=== PATIENT | female | born 2000 | race Caucasian/White ===

== ENCOUNTER 2022-07-30 13:41 | Emergency (ER) | payer OTHER, SELFPAY ==
--- NOTE | ~2022-07-30 | CT_ITS ---
EXAMINATION: CT ANGIOGRAM OF THE HEAD CT ANGIOGRAM OF THE NECK CLINICAL INFORMATION: Loss of vision for 5 minutes. Symptoms resolved. COMPARISON: There are no prior studies available for comparison. TECHNIQUE: Test bolus series followed by intravenous administration 70 mL of Omnipaque 350. Helical imaging was performed in the axial plane from the mediastinum to the skull vertex. The degree of stenosis is based off NASCET criteria. The data was processed at the eeg technologist workstation for generation of MIP images. Three-dimensional volume rendered reformatted images were also generated at an offline 3-D workstation. This CT examination was performed using dose optimization techniques as appropriate, variously including the following: *Automated exposure control *Adjustment of mA and/or kV according to patient size (this includes techniques or standardized protocols for targeted exams where dose is matched to indication/reason for exam; i.e. extremities or head) *Use of iterative reconstruction technique DLP: 2274 mGy-cm. FINDINGS: CT Head: There is no evidence of acute intracranial hemorrhage or territorial infarction. No abnormal mass-effect or midline shift is seen. Lenz to white matter differentiation is well preserved. No extra-axial fluid collections are identified. There is no abnormal enhancement. The ventricles and sulci are normal in size. There is no abnormal attenuation within the brain parenchyma. The osseous structures and soft tissues are normal. The mastoid air cells are well-aerated. There is mucoperiosteal thickening in the right greater than left maxillary sinuses. The nasal septum is deviated to the left and there is a left-sided bony nasal septal spur. CTA Neck: There is a classic configuration of the arch of the aorta. The great vessels of the neck are widely patent. The subclavian arteries appear normal bilaterally. The common carotid arteries have normal caliber. The carotid bifurcations bilaterally appear normal. The internal carotid arteries in the neck bilaterally have uniform and normal caliber. The origins of both vertebral arteries are well seen and appear normal. Both vertebral arteries are widely patent and demonstrate good opacification throughout their cervical course. The left vertebral artery is slightly dominant. Nonvascular: The visualized lung huang are well-aerated. There is reversal of the normal cervical lordosis which may be positional. There are no acute fractures or subluxations. The thyroid gland is normal in size. There is no cervical lymphadenopathy. CTA Head: The intracranial internal carotid arteries and their bifurcations appear normal. There are 3 A2 segments of the anterior cerebral arteries, a normal variant. The middle and anterior cerebral arteries bilaterally demonstrate normal caliber with no evidence of focal stenosis, aneurysm or vascular malformation. There is normal arborization of the middle cerebral artery branches. The anterior communicating artery is normal. In the posterior circulation, the left vertebral artery is dominant. The vertebral arteries intradurally have uniform caliber. The basilar artery appears normal. The posterior cerebral arteries have normal caliber. The venous sinuses opacify normally. CT/CT angio head neck IMPRESSION: CT head and neck: 1. There are no acute bleeds or territorial infarcts. 2. There are no masses or areas of abnormal enhancement. 3. There is no cervical or lymphadenopathy. 4. There is mild paranasal sinus disease. CTA head and neck: 1. The aorta, great vessels the neck and the carotid and vertebral arteries appear normal without evidence of flow-limiting stenosis. 2. Intracranially there are no focal stenoses, aneurysms or vascular malformations. This critical result was discussed with RAFAEL Poe by telephone on 07/30/2022 at 9:40 PM and it was ascertained that the content and urgency of the report was understood at the time of direct communication.
--- NOTE | 2022-07-30 13:45 | PC.NURSE ---
called to triage x 2
[2022-07-30 13:50] VITALS: BP 129/76; PULSE 82; RESP 18; TEMP 36.8; O2SAT 97; BMI 24.0
--- NOTE | 2022-07-30 13:53 | ECG_ITS ---
Test Reason : intermittent vision loss Blood Pressure : / mmHG Vent. Rate : 080 BPM Atrial Rate : 080 BPM P-R Int : 110 ms QRS Dur : 076 ms QT Int : 382 ms P-R-T Axes : 051 016 043 degrees QTc Int : 440 ms Sinus rhythm with sinus arrhythmia with short GA Otherwise normal ECG No previous ECGs available Referred By: Generic ED Physician Electronically Signed By:KATARZYNA PUGH MD
[2022-07-30 14:16] LABS: MANUAL DIFF FLAG NO
[2022-07-30 14:21] LABS: Basophils Absolute Auto 0.1 X10*3/uL (0.0-0.2); Basophils Percent Auto 0.4 % (0-2); Eosinophils Absolute Auto 0.1 X10*3/uL (0.0-0.4); Eosinophils Percent Auto 0.9 % (0-4); Hematocrit 43.3 % (37.0-47.0); Imm Gran Abs Auto 0.04 X10*3/uL (0.00-0.03); Imm Gran Pct Auto 0.3 % (0.0-0.4); Lymphocytes Absolute Auto 2.2 X10*3/uL (1.2-4.9); Lymphocytes Percent Auto 18.6 % (20-40); Mean Corpuscular HGB Conc 32.3 g/dl (31.0-35.0); Mean Corpuscular Hemoglobin 27.5 pg (27.0-33.0); Mean Corpuscular Volume 84.9 fL (80.0-98.0); Mean Platelet Volume 9.7 fL (9.4-12.3); Monocytes Absolute Auto 0.6 X10*3/uL (0.1-1.2); Monocytes Percent Auto 5.1 % (2-11); Neutrophils Absolute Auto 8.7 x10*3/uL (2.0-8.3); Neutrophils Percent Auto 74.7 % (45-73); Platelet Count 325 X10*3/uL (160-400); Red Cell Distribution Width 13.2 % (11.0-16.0); White Blood Count 11.7 X10*3/uL (4.8-10.8)
[2022-07-30 14:37] LABS: Alanine Aminotransferase 18 U/L (0-31); Albumin Level 4.8 g/dL (3.5-5.0); Alkaline Phosphatase 76 U/L (39-117); Anion Gap 13 (12-20); Aspartate Amino Transferase 27 U/L (5-31); Bilirubin Direct 0.2 mg/dL (0.0-0.5); Bilirubin Total 0.6 mg/dL (0.0-1.0); Blood Urea Nitrogen 13 mg/dL (9-16); Calcium 10.1 mg/dL (8.4-10.2); Carbon Dioxide 28 mmol/L (22-29); Chloride 104 mmol/L (96-108); Estimated Glomerular Filt Rate > 60; Glucose Random 103 mg/dL (60-115); Lipase 16 U/L (8-78); Potassium 4.4 mmol/L (3.3-5.1); Sodium 141 mmol/L (135-145); Total Protein 7.7 g/dL (6.5-8.0)
[2022-07-30 16:37] LABS: Appearance Urine Clear; Color Urine Yellow; Glucose Urine UA Negative (Negative); Leukocyte Esterase Urine Moderate (2+) (Negative); Nitrite Urine Negative (Negative); PH 7.5 (5.0-9.0); Specific Gravity - Urine <= 1.005 (1.005-1.025); UMIC TRIGGER UACC YES; Urine Blood Negative (Negative); Urine Ketones Negative (Negative); Urine Protein Negative (Neg-Trace)
[2022-07-30 16:38] LABS: UPreg QC Valid YES; Urine Pregnancy NEGATIVE (NEGATIVE)
[2022-07-30 16:39] LABS: Bacteria Urine None Seen (None Seen); Hyaline Casts Urine 0-2 /LPF (0-2); RBC Urine 0-2 /HPF (0-2); UACC Culture Trigger YES
[2022-07-30 17:33] LABS: Magnesium 1.9 mg/dL (1.6-2.6)
--- NOTE | 2022-07-30 18:25 | ED.GENADULT ---
HPI - General Adult General Chief complaint: General Medical <RAFAEL Whitaker Last Filed: 07/30/22 20:10> Stated complaint: lost vision earlier today <RAFAEL Whitaker Last Filed: 07/30/22 20:10> Time Seen by Provider: 07/30/22 16:45 <RAFAEL Whitaker Last Filed: 07/30/22 20:10> Source: patient <RAFAEL Whitaker Last Filed: 07/30/22 20:10> Mode of arrival: ambulatory <RAFAEL Whitaker Last Filed: 07/30/22 20:10> History of Present Illness HPI narrative: 22-year-old female with no significant past medical history presenting to the ED complaining black dot noted in vision this morning around 07:30AM then prgressed to complete loss of vision x5 minutes in bilateral eyes. Symptoms spontaneously resolved, asymptomatic at present. Reports mild associated headache. Denies nausea, vomiting, numbness, tingling, weakness, head trauma/fall. Denies taking anticoagulation. No oral OCPs <RAFAEL Whitaker Last Filed: 07/30/22 20:10> Onset (ago): hour(s) <RAFAEL Whitaker Last Filed: 07/30/22 20:10> Related Data Allergies/adverse reactions: Allergies Allergy/AdvReac Type Severity Reaction Status Date / Time No Known Allergies Allergy Verified 07/30/22 13:49 <RAFAEL Whitaker Last Filed: 07/30/22 20:10> Review of Systems Review of Systems: Constitutional: No Fever, No Chills, No Fatigue, No Malaise ENT/Mouth: No Hearing loss, No Ear Pain, No Nasal Congestion, No sore throat, No Rhinorrhea, No Swallowing Difficulty Eyes: No Eye Pain, No Swelling, No Redness, No Discharge, + Vision Changes Cardiovascular: No Chest Pain, No SOB, No Dyspnea on Exertion, No Orthopnea, No Edema, No Palpitations Respiratory: No Cough, No Sputum, No Dyspnea Gastrointestinal: No Nausea, No Vomiting, No Diarrhea, No Constipation, No Abdominal pain, Genitourinary: No Dysuria, No Urinary Frequency, No Hematuria, No Urinary Incontinence/retention, No Flank Pain Musculoskeletal: No joint pain, No Myalgias, No Joint Swelling Skin: No Skin Lesions, No rash Neuro: No Weakness, No Numbness, No Paresthesias, No Loss of Consciousness, No Dizziness, + Headache <RAFAEL Whitaker - Last Filed: 07/30/22 20:10> Yes all other systems are reviewed and are negative <RAFAEL Whitaker - Last Filed: 07/30/22 20:10> Constitutional: Constitutional: Reports as per HPI <RAFAEL Whitaker - Last Filed: 07/30/22 20:10> Neurologic: Denies Abnormal speech present <RAFAEL Whitaker - Last Filed: 07/30/22 20:10> [facility] Past Medical History Attestation statement: The following information was validated with the patient. <RAFAEL Whitaker - Last Filed: 07/30/22 20:10> Social History Social History: Social History Advance Directives: No Advance Directives Information Provided: No <RAFAEL Whitaker - Last Filed: 07/30/22 20:10> Physical Exam ED Vital Signs: Vital Signs - 24 hr 07/30/22 13:50 Temperature 98.3 F Pulse Rate 82 Respiratory Rate 18 Blood Pressure 129/76 Pulse Oximetry 97 Oxygen Delivery Method Room Air BMI result Body Mass Index 24.0 <RAFAEL Whitaker - Last Filed: 07/30/22 20:10> Vital Signs - 24 hr 07/30/22 13:50 Temperature 98.3 F Pulse Rate 82 Respiratory Rate 18 Blood Pressure 129/76 Pulse Oximetry 97 Oxygen Delivery Method Room Air BMI result Body Mass Index 24.0 <RAFAEL Poe - Last Filed: 07/30/22 21:45> Const General: cooperative, healthy appearing, no acute distress and well developed <RAFAEL Whitaker Last Filed: 07/30/22 20:10> Orientation/consciousness: patient oriented x3 <RAFAEL Whitaker Last Filed: 07/30/22 20:10> Limitations: no limitations <RAFAEL Whitaker Last Filed: 07/30/22 20:10> HENMT Head: Yes normal to inspection and Yes atraumatic <Bree Hyatt PA - Last Filed: 07/30/22 20:10> Ears: hearing grossly normal bilaterally <Bree Hyatt PA - Last Filed: 07/30/22 20:10> General nose exam: Normal external nose present <Bree Hyatt PA - Last Filed: 07/30/22 20:10> Face and sinus: Yes normal facial exam <Bree Hyatt DE - Last Filed: 07/30/22 20:10> Mouth: Normal oral and palatal mucosa present <Bree Hyatt PA - Last Filed: 07/30/22 20:10> Throat: Yes posterior oropharynx normal, Yes tonsils normal and Yes uvula midline <Bree Hyatt PA - Last Filed: 07/30/22 20:10> Eyes General: appearance normal, both eyes and all related structures <Bree Hyatt DE - Last Filed: 07/30/22 20:10> Alignment and Position: alignment normal <Bree Hyatt PA - Last Filed: 07/30/22 20:10> Periorbital: periorbital findings normal <Bree Hyatt PA - Last Filed: 07/30/22 20:10> Eyelids: Yes eyelids normal <Bree Hyatt PA - Last Filed: 07/30/22 20:10> Conjunctivae: conjunctivae normal <Bree Hyatt PA - Last Filed: 07/30/22 20:10> Sclerae: sclerae normal <Bree Hyatt DE - Last Filed: 07/30/22 20:10> Corneas: corneas normal <Bree Hyatt PA - Last Filed: 07/30/22 20:10> Pupils: Equal, round and reactive pupils present <Bree Hyatt PA - Last Filed: 07/30/22 20:10> EOM: EOMs intact bilaterally <Bree Hyatt PA - Last Filed: 07/30/22 20:10> Direct Ophthalmoscopy: normal light reflex and no photophobia <Bree Hyatt PA - Last Filed: 07/30/22 20:10> Neck Neck: Yes normal visual inspection, Yes no lymphadenopathy and Yes no meningeal signs <Bree Hyatt PA - Last Filed: 07/30/22 20:10> Resp Effort & Inspection: normal respiratory effort and no respiratory distress <Bree Hyatt PA - Last Filed: 07/30/22 20:10> Auscultation: clear to auscultation bilaterally <Bree Hyatt PA - Last Filed: 07/30/22 20:10> Cardio Rate: regular rate <Bree Hyatt PA - Last Filed: 07/30/22 20:10> Heart sounds: S1 normal heart sound present and S2 normal heart sound present <Bree Hyatt PA - Last Filed: 07/30/22 20:10> GI Inspection: Yes normal to inspection <Bree Hyatt PA - Last Filed: 07/30/22 20:10> Palpation (GI): Soft to palpation, nontender, no guarding and not rigid <Bree Hyatt PA - Last Filed: 07/30/22 20:10> General: Yes no CVA tenderness <Bree Hyatt PA - Last Filed: 07/30/22 20:10> Back/Spine/Pelvis Back: no CVA tenderness <Bree Hyatt PA - Last Filed: 07/30/22 20:10> Skin Rashes: no rashes <Bree Hyatt PA - Last Filed: 07/30/22 20:10> Wounds: no wounds <Bree Hyatt PA - Last Filed: 07/30/22 20:10> Neuro General: patient oriented x3, gait normal, tone normal, moves all extremities, Normal light touch and pain sensation, no meningeal signs, no focal motor deficits and CN's II-XI intact bilaterally <Bree Hyatt PA - Last Filed: 07/30/22 20:10> Cranial nerves: Yes CN's II-XII intact bilaterally, Yes Equal, round and reactive pupils present, Yes Nystagmus not present, Yes Normal facial strength present and Yes Midline tongue present <Bree Hyatt PA - Last Filed: 07/30/22 20:10> Cognition (Neuro): normal cognition <Bree Hyatt PA - Last Filed: 07/30/22 20:10> Speech: No Abnormal speech present <Bree Pouliot, PA - Last Filed: 07/30/22 20:10> Gait exam (Neuro): Normal gait present <RAFAEL Whitaker Last Filed: 07/30/22 20:10> Motor exam (neuro): 5/5 motor strength present throughout, Pronator motor function not present and no tremor noted <RAFAEL Whitaker Last Filed: 07/30/22 20:10> Coordination: [id number] test normal <RAFAEL Whitaker Last Filed: 07/30/22 20:10> Romberg Test: Negative <RAFAEL Whitaker Last Filed: 07/30/22 20:10> Extrem General: Yes normal to inspection <RAFAEL Whitaker Last Filed: 07/30/22 20:10> Course Course Course Narrative: -mild leukocytosis of 11.7. Labs otherwise unremarkable -UA with positive leuk esterase and wbc's however contaminated > will wait for culture to treat w/Abx -1926--1st page out to neurology at 18:10, still unable to contact -1943--neurology has been called 6x without answer -1999--spoke with Neurology, Dr. Riddle, believes patient had complicated migraine GARCES. Recommended if CTA negative can discharge home with close follow-up -2014--ED care transferred to RAFAEL aWng pending CTA results <RAFAEL Whitaker - Last Filed: 07/30/22 20:10> Reevaluation(s) Reevaluation #1: CTA within normal limits. Plan is to DC patient home and have her follow up with neurology. Comfortable w/ dc home with prompt PCP and neurology follow-up. Educated on worrisome signs and symptoms and when to return. Comfortable discharge home <RAFAEL Poe Last Filed: 07/30/22 21:45> Time: 21:42 <RAFAEL Poe Last Filed: 07/30/22 21:45> Medical Decision Making MDM Narrative Medical decision making narrative: 22-year-old female with no significant past medical history presenting to the ED complaining black dot noted in vision this morning around 07:30AM then prgressed to complete loss of vision x5 minutes in bilateral eyes. Symptoms spontaneously resolved, asymptomatic at present. On exam vital signs stable, NAD, nontoxic appearing, no focal neuro deficits. Concern for amaurosis fugax vs vascular/arterial disease vs migraine. Lower suspicion for TIA/CVA. Plan: Labs, UA, CTA head and neck, neurology consult <RAFAEL Whitaker - Last Filed: 07/30/22 20:10> Medical Records Medical records reviewed: Yes I reviewed the patient's medical records. <RAFAEL Whitaker - Last Filed: 07/30/22 20:10> Lab Data Lab results reviewed: Yes I reviewed the patient's lab results. <RAFAEL Whitaker - Last Filed: 07/30/22 20:10> Result diagrams: : 07/30/22 14:11 07/30/22 14:11 <RAFAEL Whitaker - Last Filed: 07/30/22 20:10> Labs: Lab Results 07/30/22 07/30/22 07/30/22 Range/Units 14:11 14:11 16:29 WBC 11.7 H (4.8-10.8) X10*3/uL RBC 5.10 (4.20-5.50) X10*6/uL Hgb 14.0 (12.0-16.0) g/dl Hct 43.3 (37.0-47.0) % MCV 84.9 (80.0-98.0) fL MCH 27.5 (27.0-33.0) pg MCHC 32.3 (31.0-35.0) g/dl RDW 13.2 (11.0-16.0) % Plt Count 325 (160-400) X10*3/uL MPV 9.7 (9.4-12.3) fL Immature Gran % (Auto) 0.3 (0.0-0.4) % Neut % (Auto) 74.7 H (45-73) % Lymph % (Auto) 18.6 L (20-40) % [place] % (Auto) 5.1 (2-11) % Eos % (Auto) 0.9 (0-4) % Baso % (Auto) 0.4 (0-2) % Lymph # (Auto) 2.2 (1.2-4.9) X10*3/uL [place] # (Auto) 0.6 (0.1-1.2) X10*3/uL Eos # (Auto) 0.1 (0.0-0.4) X10*3/uL Baso # (Auto) 0.1 (0.0-0.2) X10*3/uL Abs Immat Gran (auto) 0.04 H (0.00-0.03) X10*3/uL Absolute Neuts (auto) 8.7 H (2.0-8.3) x10*3/uL Absolute Nucleated RBC 0.000 (0.0-0.012) X10*3/uL Nucleated RBC % (auto) 0.0 (0.0-0.2) /100WBC PT (10.0-13.1) SEC INR (0.9-1.1) Sodium 141 (135-145) mmol/L Potassium 4.4 (3.3-5.1) mmol/L Chloride 104 (96-108) mmol/L Carbon Dioxide 28 (22-29) mmol/L Anion Gap 13 (12-20) BUN 13 (9-16) mg/dL Creatinine 0.88 (0.5-1.4) mg/dL Estim Creat Clear Calc 88.0 Estimated GFR > 60 Random Glucose 103 (60-115) mg/dL Calcium 10.1 (8.4-10.2) mg/dL Magnesium 1.9 (1.6-2.6) mg/dL Total Bilirubin 0.6 (0.0-1.0) mg/dL Direct Bilirubin 0.2 (0.0-0.5) mg/dL AST 27 (5-31) U/L ALT 18 (0-31) U/L Alkaline Phosphatase 76 (39-117) U/L Total Protein 7.7 (6.5-8.0) g/dL Albumin 4.8 (3.5-5.0) g/dL Lipase 16 (8-78) U/L Urine Color Yellow Urine Appearance Clear Urine pH 7.5 (5.0-9.0) Ur Specific Mather <= 1.005 (1.005-1.025) Urine Protein Negative (Neg-Trace) mg/dL Urine Glucose (UA) Negative (Negative) mg/dL Urine Ketones Negative (Negative) mg/dL Urine Blood Negative (Negative) Urine Nitrite Negative (Negative) Ur Leukocyte Esterase Moderate (2+) H (Negative) Urine RBC 0-2 (0-2) /HPF Urine WBC 6-10 H (0-5) /HPF Ur Squamous Epith Cells 3-5 (0-2) /HPF Urine Bacteria None Seen (None Seen) Hyaline Casts 0-2 (0-2) /LPF Urine Test (NEGATIVE) 07/30/22 07/30/22 Range/Units 16:29 18:41 WBC (4.8-10.8) X10*3/uL RBC (4.20-5.50) X10*6/uL Hgb (12.0-16.0) g/dl Hct (37.0-47.0) % MCV (80.0-98.0) fL MCH (27.0-33.0) pg MCHC (31.0-35.0) g/dl RDW (11.0-16.0) % Plt Count (160-400) X10*3/uL MPV (9.4-12.3) fL Immature Gran % (Auto) (0.0-0.4) % Neut % (Auto) (45-73) % Lymph % (Auto) (20-40) % [place] % (Auto) (2-11) % Eos % (Auto) (0-4) % Baso % (Auto) (0-2) % Lymph # (Auto) (1.2-4.9) X10*3/uL [place] # (Auto) (0.1-1.2) X10*3/uL Eos # (Auto) (0.0-0.4) X10*3/uL Baso # (Auto) (0.0-0.2) X10*3/uL Abs Immat Gran (auto) (0.00-0.03) X10*3/uL Absolute Neuts (auto) (2.0-8.3) x10*3/uL Absolute Nucleated RBC (0.0-0.012) X10*3/uL Nucleated RBC % (auto) (0.0-0.2) /100WBC PT 11.9 (10.0-13.1) SEC INR 1.0 (0.9-1.1) Sodium (135-145) mmol/L Potassium (3.3-5.1) mmol/L Chloride (96-108) mmol/L Carbon Dioxide (22-29) mmol/L Anion Gap (12-20) BUN (9-16) mg/dL Creatinine (0.5-1.4) mg/dL Estim Creat Clear Calc Estimated GFR Random Glucose (60-115) mg/dL Calcium (8.4-10.2) mg/dL Magnesium (1.6-2.6) mg/dL Total Bilirubin (0.0-1.0) mg/dL Direct Bilirubin (0.0-0.5) mg/dL AST (5-31) U/L ALT (0-31) U/L Alkaline Phosphatase (39-117) U/L Total Protein (6.5-8.0) g/dL Albumin (3.5-5.0) g/dL Lipase (8-78) U/L Urine Color Urine Appearance Urine pH (5.0-9.0) Ur Specific Mather (1.005-1.025) Urine Protein (Neg-Trace) mg/dL Urine Glucose (UA) (Negative) mg/dL Urine Ketones (Negative) mg/dL Urine Blood (Negative) Urine Nitrite (Negative) Ur Leukocyte Esterase (Negative) Urine RBC (0-2) /HPF Urine WBC (0-5) /HPF Ur Squamous Epith Cells (0-2) /HPF Urine Bacteria (None Seen) Hyaline Casts (0-2) /LPF Urine Test NEGATIVE (NEGATIVE) <RAFAEL Whitaker - Last Filed: 07/30/22 20:10> Lab Results 07/30/22 07/30/22 07/30/22 Range/Units 14:11 14:11 16:29 WBC 11.7 H (4.8-10.8) X10*3/uL RBC 5.10 (4.20-5.50) X10*6/uL Hgb 14.0 (12.0-16.0) g/dl Hct 43.3 (37.0-47.0) % MCV 84.9 (80.0-98.0) fL MCH 27.5 (27.0-33.0) pg MCHC 32.3 (31.0-35.0) g/dl RDW 13.2 (11.0-16.0) % Plt Count 325 (160-400) X10*3/uL MPV 9.7 (9.4-12.3) fL Immature Gran % (Auto) 0.3 (0.0-0.4) % Neut % (Auto) 74.7 H (45-73) % Lymph % (Auto) 18.6 L (20-40) % [place] % (Auto) 5.1 (2-11) % Eos % (Auto) 0.9 (0-4) % Baso % (Auto) 0.4 (0-2) % Lymph # (Auto) 2.2 (1.2-4.9) X10*3/uL [place] # (Auto) 0.6 (0.1-1.2) X10*3/uL Eos # (Auto) 0.1 (0.0-0.4) X10*3/uL Baso # (Auto) 0.1 (0.0-0.2) X10*3/uL Abs Immat Gran (auto) 0.04 H (0.00-0.03) X10*3/uL Absolute Neuts (auto) 8.7 H (2.0-8.3) x10*3/uL Absolute Nucleated RBC 0.000 (0.0-0.012) X10*3/uL Nucleated RBC % (auto) 0.0 (0.0-0.2) /100WBC PT (10.0-13.1) SEC INR (0.9-1.1) Sodium 141 (135-145) mmol/L Potassium 4.4 (3.3-5.1) mmol/L Chloride 104 (96-108) mmol/L Carbon Dioxide 28 (22-29) mmol/L Anion Gap 13 (12-20) BUN 13 (9-16) mg/dL Creatinine 0.88 (0.5-1.4) mg/dL Estim Creat Clear Calc 88.0 Estimated GFR > 60 Random Glucose 103 (60-115) mg/dL Calcium 10.1 (8.4-10.2) mg/dL Magnesium 1.9 (1.6-2.6) mg/dL Total Bilirubin 0.6 (0.0-1.0) mg/dL Direct Bilirubin 0.2 (0.0-0.5) mg/dL AST 27 (5-31) U/L ALT 18 (0-31) U/L Alkaline Phosphatase 76 (39-117) U/L Total Protein 7.7 (6.5-8.0) g/dL Albumin 4.8 (3.5-5.0) g/dL Lipase 16 (8-78) U/L Urine Color Yellow Urine Appearance Clear Urine pH 7.5 (5.0-9.0) Ur Specific Mather <= 1.005 (1.005-1.025) Urine Protein Negative (Neg-Trace) mg/dL Urine Glucose (UA) Negative (Negative) mg/dL Urine Ketones Negative (Negative) mg/dL Urine Blood Negative (Negative) Urine Nitrite Negative (Negative) Ur Leukocyte Esterase Moderate (2+) H (Negative) Urine RBC 0-2 (0-2) /HPF Urine WBC 6-10 H (0-5) /HPF Ur Squamous Epith Cells 3-5 (0-2) /HPF Urine Bacteria None Seen (None Seen) Hyaline Casts 0-2 (0-2) /LPF Urine Test (NEGATIVE) 07/30/22 07/30/22 Range/Units 16:29 18:41 WBC (4.8-10.8) X10*3/uL RBC (4.20-5.50) X10*6/uL Hgb (12.0-16.0) g/dl Hct (37.0-47.0) % MCV (80.0-98.0) fL MCH (27.0-33.0) pg MCHC (31.0-35.0) g/dl RDW (11.0-16.0) % Plt Count (160-400) X10*3/uL MPV (9.4-12.3) fL Immature Gran % (Auto) (0.0-0.4) % Neut % (Auto) (45-73) % Lymph % (Auto) (20-40) % [place] % (Auto) (2-11) % Eos % (Auto) (0-4) % Baso % (Auto) (0-2) % Lymph # (Auto) (1.2-4.9) X10*3/uL [place] # (Auto) (0.1-1.2) X10*3/uL Eos # (Auto) (0.0-0.4) X10*3/uL Baso # (Auto) (0.0-0.2) X10*3/uL Abs Immat Gran (auto) (0.00-0.03) X10*3/uL Absolute Neuts (auto) (2.0-8.3) x10*3/uL Absolute Nucleated RBC (0.0-0.012) X10*3/uL Nucleated RBC % (auto) (0.0-0.2) /100WBC PT 11.9 (10.0-13.1) SEC INR 1.0 (0.9-1.1) Sodium (135-145) mmol/L Potassium (3.3-5.1) mmol/L Chloride (96-108) mmol/L Carbon Dioxide (22-29) mmol/L Anion Gap (12-20) BUN (9-16) mg/dL Creatinine (0.5-1.4) mg/dL Estim Creat Clear Calc Estimated GFR Random Glucose (60-115) mg/dL Calcium (8.4-10.2) mg/dL Magnesium (1.6-2.6) mg/dL Total Bilirubin (0.0-1.0) mg/dL Direct Bilirubin (0.0-0.5) mg/dL AST (5-31) U/L ALT (0-31) U/L Alkaline Phosphatase (39-117) U/L Total Protein (6.5-8.0) g/dL Albumin (3.5-5.0) g/dL Lipase (8-78) U/L Urine Color Urine Appearance Urine pH (5.0-9.0) Ur Specific Mather (1.005-1.025) Urine Protein (Neg-Trace) mg/dL Urine Glucose (UA) (Negative) mg/dL Urine Ketones (Negative) mg/dL Urine Blood (Negative) Urine Nitrite (Negative) Ur Leukocyte Esterase (Negative) Urine RBC (0-2) /HPF Urine WBC (0-5) /HPF Ur Squamous Epith Cells (0-2) /HPF Urine Bacteria (None Seen) Hyaline Casts (0-2) /LPF Urine Test NEGATIVE (NEGATIVE) <SusRAFAEL Pérez - Last Filed: 07/30/22 21:45> ECG Data Attestation: I personally reviewed and interpreted this ECG as follows: <RAFAEL Whitaker - Last Filed: 07/30/22 20:10> Interpretation: EKG sinus rhythm with sinus arrhythmia with short [place] at a rate of 80. QRS 76. QTC 440. No STEMI <RAFAEL Whitaker Last Filed: 07/30/22 20:10> Discharge Plan Discharge Clinical Impression: Migraine, Visual loss <RAFAEL Whitaker Last Filed: 07/30/22 20:10> Patient Disposition: Home, Self-Care <RAFAEL Whitaker Last Filed: 07/30/22 20:10> Instructions: Migraine Headache (ED) <RAFAEL Whitaker - Last Filed: 07/30/22 20:10> Additional Instructions: Your blood work was reassuring. This CTA of the head showed no acute findings. Follow-up with your primary care provider this week. Follow-up with Neurology within the next week, call to schedule an appointment as soon as possible Return to the emergency department with new or worsening symptoms. Such as fevers, chills, chest pain, shortness of breath, nausea, vomiting, dizziness, headache, vision changes, lethargy In case of emergency call 911 If symptoms recur, persist, you develop any other numbness, tingling, weakness, headaches, nausea or vomiting return to the emergency department immediately. YOU NEED TO HAVE CLOSE FOLLOW-UP WITH NEUROLOGY. ADDITIONALLY FOLLOW-UP WITH HER PRIMARY CARE DOCTOR CT/CT angio head neck IMPRESSION: CT head and neck: 1. There are no acute bleeds or territorial infarcts. 2. There are no masses or areas of abnormal enhancement. 3. There is no cervical or lymphadenopathy. 4. There is mild paranasal sinus disease. ? CTA head and neck: 1. The aorta, great vessels the neck and the carotid and vertebral arteries appear normal without evidence of flow-limiting stenosis. 2. Intracranially there are no focal stenoses, aneurysms or vascular malformations. <RAFAEL Whitaker Last Filed: 07/30/22 20:10> Referrals: [facility] [place] [facility] [Provider Group] - 5 days Physician,Nonstaff [Primary Care Provider] - 2 days <RAFAEL Whitaker - Last Filed: 07/30/22 20:10> Stand Alone Forms: Work/School Release <RAFAEL Whitaker - Last Filed: 07/30/22 20:10> Interventions: ED Discharge Assessment Last Done: 07/30/22 22:06 <RAFAEL Whitaker - Last Filed: 07/30/22 20:10> Discharge Date/Time: 07/30/22 22:07 <RAFAEL Whitaker - Last Filed: 07/30/22 20:10>
[2022-07-30 18:53] LABS: Prothrombin Time 11.9 SEC (10.0-13.1)
[2022-07-30] MEDS: iohexoL 350 MG/ML 100 ML INFUS..BTL IV (19:33)
== END 2022-07-30 22:07 | disposition home or self-care (01) ==
PROVIDERS: Physician Assistant; Emergency Provider Emergency Medicine
DX: G43.909 Migraine, unspecified, not intractable, without status migrainosus (principal); H54.3 Unqualified visual loss, both eyes
CPT/HCPCS: 36415; 70496; 70498; 80053; 81001; 81025; 82248; 83690; 83735; 85025; 85610; 87086; 93005; 99284; Q9967